=== PATIENT | male | born 1940 | race Hispanic/Latino ===

== ENCOUNTER 2022-06-29 15:22 | Inpatient (IN) | payer MEDICARE ==
[~2022-06-29] VITALS: Ht 170.2 cm; Wt 65.4 kg
[2022-06-29] VITALS (10 sets, daily range): BP systolic 92–137; BP diastolic 44–61
[2022-06-29] MEDS ORDERED: ACETAMINOPHEN 1000 MG/100 ML IV STA (15:52)
[2022-06-29] MEDS ORDERED: SODIUM CHLORIDE 0.9% 1000ML 1,000 ML IV SCH ×2 (16:00→17:15)
[2022-06-29 16:48] LABS: BASOPHILS % 0.3 % (0.0-1.0); EOSINOPHILS % 0.3 % (0.0-6.0); HEMATOCRIT 36.2 % (38.2-49.6); HEMOGLOBIN 10.9 g/dL (14.0-18.0); LYMPHOCYTES # (AUTO) 0.6 (1.0-3.2); LYMPHOCYTES % 9.1 % (18.0-39.1); MEAN CORPUSCULAR HEMOGLOBIN 30.4 pg (28-32); MEAN CORPUSCULAR HGB CONC 30.1 g/dL (31-35); MEAN CORPUSCULAR VOLUME 101.1 fL (81-99); MONOCYTES # (AUTO) 0.9 (0.2-0.8); MONOCYTES % 13.5 % (4.4-11.3); NEUTROPHILS # (AUTO) 5.1 (2.1-6.9); NEUTROPHILS % 76.3 % (38.7-80.0); PLATELET COUNT 246 x10e3/uL (140-360); RED BLOOD COUNT 3.58 x10e6/uL (4.3-5.7); RED CELL DISTRIBUTION WIDTH 13.7 % (11.7-14.4)
[2022-06-29 16:50] LABS: CLARITY,URINE SL CLOUDY (CLEAR); COLOR,URINE YELLOW (YELLOW); KETONES,URINE NEGATIVE (NEGATIVE); LEUKOCYTE ESTERASE ,URINE NEGATIVE (NEGATIVE); NITRITE,URINE NEGATIVE (NEGATIVE); PROTEIN,URINE DIPSTICK 2+ (NEGATIVE); URINE UROBILINOGEN 0.2 mg/dL (0.2 - 1)
[2022-06-29 16:58] LABS: AMORPHOUS SEDIMENT,URINE MODERATE (FEW); BACTERIA,URINE MODERATE /HPF
[2022-06-29 16:59] LABS: INR 1.24; PROTHROMBIN TIME 16.7 seconds (11.9-14.5)
[2022-06-29 17:08] LABS: ALBUMIN 3.5 g/dL (3.5-5.0); ALBUMIN/GLOBULIN RATIO 0.6 (0.8-2.0); ANION GAP 18.7 mmol/L (8-16); CALCIUM 8.9 mg/dL (8.4-10.2); CREATININE, SERUM 1.89 mg/dL (0.72-1.25); POTASSIUM 4.7 mmol/L (3.5-5.1)
[2022-06-29] MEDS ORDERED: SODIUM CHLORIDE FLUSH 10 ML SYR INJ PRN (17:15)
[2022-06-29] MEDS ORDERED: MIDAZOLAM HCL 2 MG/2 ML VIAL ONE (17:41)
[2022-06-29] MEDS ORDERED: FENTANYL CITRATE/PF 100MCG/2 ML INJ ONE (17:41)
[2022-06-29] MEDS ORDERED: SODIUM CHLORIDE 0.9% 1000ML 1,000 ML ONE (17:42)
[2022-06-29] MEDS ORDERED: HEPARIN SOD/SOD CHLORIDE 2,000 ML ONE (17:42)
[2022-06-29 17:45] LABS: CREATINE KINASE MB 1.8 ng/mL (0-5.0)
[2022-06-29] MEDS ORDERED: ACETAMINOPHEN 325 MG TAB PO PRN (19:15)
[2022-06-29] MEDS ORDERED: ONDANSETRON HCL INJ 2MG/ML 2ML 2 MG/ML VIAL IV PRN (19:15)
[2022-06-29] MEDS ORDERED: LIDOCAINE HCL 2% 100 MG/5 ML IV ONE (19:47)
[2022-06-29] MEDS ORDERED: AMIODARONE 900MG 900 MG in Premix Bag 1 BAG IV ONE (21:00)
[2022-06-29] MEDS ORDERED: VASOPRESSIN 60 UNIT in DEXTROSE 5% 50ML 57 ML IV PRN (21:00)
[2022-06-29] MEDS ORDERED: AMIODARONE HCL 150 MG/100 ML BAG IV ONE (21:00)
[2022-06-29] MEDS ORDERED: AMIODARONE 900MG 500 ML IV ONE (21:20)
[2022-06-30] VITALS (85 sets, daily range): BP systolic 83–152; BP diastolic 43–87
[2022-06-30] MEDS ORDERED: FUROSEMIDE INJ 10 MG/ML 4 ML VIAL IV ONE ×2 (01:00→01:15)
[2022-06-30 01:53] LABS: CREATINE KINASE MB 7.2 ng/mL (0-5.0)
[2022-06-30] MEDS ORDERED: ACETAMINOPHEN 1000 MG/100 ML IV PRN (02:30)
[2022-06-30 02:35] LABS: ABG HCO3 19 mmol/L (22-26); ABG PCO2 32 mmHg (35-45); ABG PH 7.37 (7.35-7.45); ABG PO2 77 mmHg (80-105); ABG TCO2 20
[2022-06-30 06:44] LABS: BASOPHILS % 0.4 % (0.0-1.0); HEMATOCRIT 31.6 % (38.2-49.6); HEMOGLOBIN 10.1 g/dL (14.0-18.0); LYMPHOCYTES # (AUTO) 0.6 (1.0-3.2); LYMPHOCYTES % 5.7 % (18.0-39.1); MEAN CORPUSCULAR HEMOGLOBIN 30.9 pg (28-32); MEAN CORPUSCULAR VOLUME 96.6 fL (81-99); MONOCYTES # (AUTO) 0.8 (0.2-0.8); MONOCYTES % 7.4 % (4.4-11.3); NEUTROPHILS # (AUTO) 8.9 (2.1-6.9); PLATELET COUNT 207 x10e3/uL (140-360); RED BLOOD COUNT 3.27 x10e6/uL (4.3-5.7); RED CELL DISTRIBUTION WIDTH 13.9 % (11.7-14.4)
[2022-06-30 07:13] LABS: ALBUMIN 2.9 g/dL (3.5-5.0); ALBUMIN/GLOBULIN RATIO 0.6 (0.8-2.0); ANION GAP 15.6 mmol/L (8-16); CALCIUM 8.3 mg/dL (8.4-10.2); CHOL/HDL RATIO 3.4 (3.9-4.7); CREATININE, SERUM 2.07 mg/dL (0.72-1.25); POTASSIUM 3.6 mmol/L (3.5-5.1)
[2022-06-30] MEDS ORDERED: OSELTAMIVIR PHOSPHATE 75 MG CAP PO SCH ×2 (09:00)
[2022-06-30] MEDS ORDERED: GUAIFENESIN/DEXTROMETHORPHAN LIQD 5 ML UDC PO PRN (10:45)
[2022-06-30] MEDS ORDERED: DOCUSATE SODIUM 100 MG CAP PO PRN (10:45)
[2022-06-30 12:35] LABS: CREATINE KINASE MB 10.6 ng/mL (0-5.0)
[2022-06-30] MEDS: IPRATROPIUM BROMIDE 0.02% 2.5 ML NEB NEB SCH ×2 (13:00→19:20)
[2022-06-30] MEDS ORDERED: BENICAR20 MG PO (15:20)
[2022-06-30] MEDS ORDERED: ATORVASTATIN CA20 MG PO (15:20)
[2022-06-30] MEDS ORDERED: OXYBUTYNIN CHLOR5 MG PO (15:20)
[2022-06-30] MEDS ORDERED: AVODART0.5 MG PO (15:20)
[2022-06-30] MEDS ORDERED: LEVOTHYROXINE50 MCG PO (15:20)
[2022-06-30] MEDS ORDERED: ENOXAPARIN SOD INJ 40 MG/0.4 ML SYR SC SCH (17:00)
[2022-06-30] MEDS: ENOXAPARIN 30 MG/0.3 ML SYR SC SCH (18:37)
[2022-06-30] MEDS: ALBUTEROL SULF 0.083% NEB SOLN 3 ML NEB NEB PRN (19:20)
[2022-06-30] MEDS ORDERED: AMIODARONE 900MG 900 MG in Premix Bag 1 BAG IV SCH (20:30)
[2022-06-30] MEDS ORDERED: AMIODARONE 900MG 500 ML IV ONE (21:46)
[2022-06-30 22:01] LABS: CREATININE,URINE RANDOM 30.78 mg/dL (63-166); TOTAL PROTEIN, URINE 11.9 mg/dL (1-14)
[2022-07-01] VITALS (56 sets, daily range): BP systolic 92–173; BP diastolic 47–103
[2022-07-01] MEDS: IPRATROPIUM BROMIDE 0.02% 2.5 ML NEB NEB SCH ×5 (01:25→23:00)
[2022-07-01 06:56] LABS: BASOPHILS % 0.3 % (0.0-1.0); HEMATOCRIT 31.7 % (38.2-49.6); HEMOGLOBIN 10.3 g/dL (14.0-18.0); LYMPHOCYTES # (AUTO) 0.8 (1.0-3.2); LYMPHOCYTES % 8.8 % (18.0-39.1); MEAN CORPUSCULAR HEMOGLOBIN 30.7 pg (28-32); MEAN CORPUSCULAR HGB CONC 32.5 g/dL (31-35); MEAN CORPUSCULAR VOLUME 94.6 fL (81-99); MONOCYTES # (AUTO) 0.7 (0.2-0.8); MONOCYTES % 7.9 % (4.4-11.3); NEUTROPHILS # (AUTO) 7.6 (2.1-6.9); NEUTROPHILS % 82.6 % (38.7-80.0); PLATELET COUNT 209 x10e3/uL (140-360); RED BLOOD COUNT 3.35 x10e6/uL (4.3-5.7); RED CELL DISTRIBUTION WIDTH 13.9 % (11.7-14.4)
[2022-07-01 07:10] LABS: MAGNESIUM 1.8 MG/DL (1.3-2.1); PHOSPHORUS 3.4 MG/DL (2.3-4.7)
[2022-07-01 07:12] LABS: ALBUMIN 2.8 g/dL (3.5-5.0); ALBUMIN/GLOBULIN RATIO 0.6 (0.8-2.0); ANION GAP 17.8 mmol/L (8-16); CALCIUM 8.4 mg/dL (8.4-10.2); CREATININE, SERUM 1.82 mg/dL (0.72-1.25); POTASSIUM 3.8 mmol/L (3.5-5.1)
[2022-07-01] MEDS ORDERED: OSELTAMIVIR PHOSPHATE 75 MG CAP PO SCH (09:00)
[2022-07-01] MEDS ORDERED: OSELTAMIVIR PHOSPHATE 30 MG CAPSULE PO SCH (09:00)
[2022-07-01] MEDS: MULTIVITAMINS/MINERALS TAB PO SCH (11:21)
[2022-07-01] MEDS ORDERED: ACETAMINOPHEN 1000 MG/100 ML IV SCH (12:50)
[2022-07-01] MEDS: SODIUM BICARBONATE 650 MG TAB PO SCH (17:47)
[2022-07-01] MEDS: ENOXAPARIN 30 MG/0.3 ML SYR SC SCH (17:47)
[2022-07-01] MEDS: ALBUTEROL SULF 0.083% NEB SOLN 3 ML NEB NEB PRN (18:07)
[2022-07-01] MEDS ORDERED: AMIODARONE HCL 200 MG TAB PO SCH (21:00)
[2022-07-01] MEDS: OSELTAMIVIR PHOSPHATE 30 MG CAPSULE PO SCH (21:33)
[2022-07-02] VITALS (40 sets, daily range): BP systolic 96–185; BP diastolic 32–112
[2022-07-02] MEDS: ACETAMINOPHEN 1000 MG/100 ML IV PRN ×2 (01:41→10:18)
[2022-07-02] MEDS ORDERED: AMIODARONE 900MG 900 MG in Premix Bag 1 BAG IV SCH (02:00)
[2022-07-02] MEDS ORDERED: AMIODARONE 900MG 500 ML IV ONE (02:23)
[2022-07-02 06:49] LABS: BASOPHILS % 0.1 % (0.0-1.0); HEMATOCRIT 34.3 % (38.2-49.6); HEMOGLOBIN 10.7 g/dL (14.0-18.0); LYMPHOCYTES # (AUTO) 0.8 (1.0-3.2); LYMPHOCYTES % 10.8 % (18.0-39.1); MEAN CORPUSCULAR HEMOGLOBIN 30.4 pg (28-32); MEAN CORPUSCULAR HGB CONC 31.2 g/dL (31-35); MEAN CORPUSCULAR VOLUME 97.4 fL (81-99); MONOCYTES # (AUTO) 0.6 (0.2-0.8); MONOCYTES % 7.7 % (4.4-11.3); NEUTROPHILS # (AUTO) 5.9 (2.1-6.9); PLATELET COUNT 207 x10e3/uL (140-360); RED BLOOD COUNT 3.52 x10e6/uL (4.3-5.7); RED CELL DISTRIBUTION WIDTH 13.9 % (11.7-14.4)
[2022-07-02 07:11] LABS: ALBUMIN 2.5 g/dL (3.5-5.0); ALBUMIN/GLOBULIN RATIO 0.5 (0.8-2.0); ANION GAP 14.6 mmol/L (8-16); CALCIUM 8.1 mg/dL (8.4-10.2); CREATININE, SERUM 1.58 mg/dL (0.72-1.25); POTASSIUM 3.6 mmol/L (3.5-5.1)
[2022-07-02] MEDS: IPRATROPIUM BROMIDE 0.02% 2.5 ML NEB NEB SCH ×3 (07:22→19:18)
[2022-07-02] MEDS: MULTIVITAMINS/MINERALS TAB PO SCH (09:27)
[2022-07-02] MEDS: OSELTAMIVIR PHOSPHATE 30 MG CAPSULE PO SCH ×2 (09:27→19:55)
[2022-07-02] MEDS: SODIUM BICARBONATE 650 MG TAB PO SCH ×2 (09:27→16:58)
[2022-07-02] MEDS ORDERED: KCL 20 MEQ PACKET/ ORAL SOLN NG ONE (10:45)
[2022-07-02] MEDS: ENOXAPARIN 30 MG/0.3 ML SYR SC SCH (16:58)
[2022-07-02] MEDS: MELATONIN 3 MG TAB PO PRN (23:14)
[2022-07-03] VITALS (43 sets, daily range): BP systolic 112–156; BP diastolic 50–68
[2022-07-03] MEDS: IPRATROPIUM BROMIDE 0.02% 2.5 ML NEB NEB SCH ×4 (01:50→19:05)
[2022-07-03 06:42] LABS: BASOPHILS % 0.4 % (0.0-1.0); EOSINOPHILS % 0.6 % (0.0-6.0); HEMATOCRIT 30.7 % (38.2-49.6); HEMOGLOBIN 9.7 g/dL (14.0-18.0); LYMPHOCYTES # (AUTO) 0.9 (1.0-3.2); LYMPHOCYTES % 16.1 % (18.0-39.1); MEAN CORPUSCULAR HEMOGLOBIN 30.8 pg (28-32); MEAN CORPUSCULAR HGB CONC 31.6 g/dL (31-35); MEAN CORPUSCULAR VOLUME 97.5 fL (81-99); MONOCYTES # (AUTO) 0.6 (0.2-0.8); MONOCYTES % 10.4 % (4.4-11.3); NEUTROPHILS # (AUTO) 3.8 (2.1-6.9); NEUTROPHILS % 71.4 % (38.7-80.0); PLATELET COUNT 190 x10e3/uL (140-360); RED BLOOD COUNT 3.15 x10e6/uL (4.3-5.7); RED CELL DISTRIBUTION WIDTH 13.9 % (11.7-14.4)
[2022-07-03 07:04] LABS: ALBUMIN 2.2 g/dL (3.5-5.0); ALBUMIN/GLOBULIN RATIO 0.5 (0.8-2.0); ANION GAP 13.7 mmol/L (8-16); CALCIUM 7.9 mg/dL (8.4-10.2); CREATININE, SERUM 1.53 mg/dL (0.72-1.25); POTASSIUM 3.7 mmol/L (3.5-5.1)
[2022-07-03 08:16] LABS: BAND NEUTROPHILS % (MANUAL) 8 %; EOSINOPHILS % (MANUAL) 1 % (0-7); LYMPHOCYTES % (MANUAL) 7 % (19-48); METAMYELOCYTES % (MANUAL) 2 % (0-0); MONOCYTES % (MANUAL) 11 % (3.4-9.0); MYELOCYTES % (MANUAL) 1 % (0-0); NEUTROPHILS % (MANUAL) 69 % (40-74)
[2022-07-03] MEDS: AMIODARONE HCL 200 MG TAB PO SCH ×2 (08:22→17:13)
[2022-07-03] MEDS: OSELTAMIVIR PHOSPHATE 30 MG CAPSULE PO SCH ×2 (08:22→20:13)
[2022-07-03] MEDS: SODIUM BICARBONATE 650 MG TAB PO SCH ×2 (08:22→17:13)
[2022-07-03] MEDS: MULTIVITAMINS/MINERALS TAB PO SCH (08:22)
[2022-07-03 08:26] LABS: PLATELET ESTIMATE ADEQUATE; PLATELET MORPHOLOGY COMMENT NORMAL
[2022-07-03] MEDS: ENOXAPARIN 30 MG/0.3 ML SYR SC SCH (17:13)
[2022-07-04] VITALS (27 sets, daily range): BP systolic 130–153; BP diastolic 49–71
[2022-07-04] MEDS: MELATONIN 3 MG TAB PO PRN (00:41)
[2022-07-04] MEDS: IPRATROPIUM BROMIDE 0.02% 2.5 ML NEB NEB SCH ×4 (02:25→20:00)
[2022-07-04 05:39] LABS: ANION GAP 14.5 mmol/L (8-16); CALCIUM 7.6 mg/dL (8.4-10.2); CREATININE, SERUM 1.34 mg/dL (0.72-1.25); POTASSIUM 3.5 mmol/L (3.5-5.1)
[2022-07-04 08:07] LABS: BASOPHILS % 0.5 % (0.0-1.0); EOSINOPHILS # (AUTO) 0.1 (0.0-0.4); EOSINOPHILS % 1.4 % (0.0-6.0); HEMATOCRIT 31.6 % (38.2-49.6); HEMOGLOBIN 10.3 g/dL (14.0-18.0); LYMPHOCYTES # (AUTO) 1.2 (1.0-3.2); LYMPHOCYTES % 18.8 % (18.0-39.1); MEAN CORPUSCULAR HEMOGLOBIN 30.7 pg (28-32); MEAN CORPUSCULAR HGB CONC 32.6 g/dL (31-35); MONOCYTES # (AUTO) 0.7 (0.2-0.8); MONOCYTES % 10.2 % (4.4-11.3); NEUTROPHILS # (AUTO) 4.3 (2.1-6.9); NEUTROPHILS % 67.5 % (38.7-80.0); PLATELET COUNT 215 x10e3/uL (140-360); RED BLOOD COUNT 3.36 x10e6/uL (4.3-5.7); RED CELL DISTRIBUTION WIDTH 14.2 % (11.7-14.4)
[2022-07-04] MEDS: MULTIVITAMINS/MINERALS TAB PO SCH (09:42)
[2022-07-04] MEDS: AMIODARONE HCL 200 MG TAB PO SCH ×2 (09:42→17:36)
[2022-07-04] MEDS: SODIUM BICARBONATE 650 MG TAB PO SCH ×2 (09:42→17:36)
[2022-07-04] MEDS: OSELTAMIVIR PHOSPHATE 30 MG CAPSULE PO SCH ×2 (09:42→20:50)
[2022-07-04] MEDS: ONDANSETRON HCL INJ 2MG/ML 2ML 2 MG/ML VIAL IV PRN (11:21)
[2022-07-04] MEDS: ENOXAPARIN 30 MG/0.3 ML SYR SC SCH (17:36)
[2022-07-05] VITALS (19 sets, daily range): BP systolic 86–156; BP diastolic 40–87
[2022-07-05] MEDS: IPRATROPIUM BROMIDE 0.02% 2.5 ML NEB NEB SCH (00:55)
[2022-07-05] MEDS ORDERED: AMIODARONE 900MG 900 MG in Premix Bag 1 BAG IV SCH (03:30)
[2022-07-05] MEDS ORDERED: AMIODARONE 900MG 500 ML IV ONE (03:54)
[2022-07-05] MEDS: IPRATROPIUM BROMIDE 0.02% 2.5 ML NEB NEB PRN ×2 (07:00→19:30)
[2022-07-05 08:33] LABS: BASOPHILS % 0.4 % (0.0-1.0); EOSINOPHILS # (AUTO) 0.1 (0.0-0.4); EOSINOPHILS % 0.7 % (0.0-6.0); HEMATOCRIT 32.9 % (38.2-49.6); HEMOGLOBIN 10.3 g/dL (14.0-18.0); LYMPHOCYTES # (AUTO) 1.8 (1.0-3.2); MEAN CORPUSCULAR HEMOGLOBIN 30.7 pg (28-32); MEAN CORPUSCULAR HGB CONC 31.3 g/dL (31-35); MEAN CORPUSCULAR VOLUME 97.9 fL (81-99); MONOCYTES # (AUTO) 0.8 (0.2-0.8); MONOCYTES % 10.2 % (4.4-11.3); NEUTROPHILS # (AUTO) 5.1 (2.1-6.9); NEUTROPHILS % 62.9 % (38.7-80.0); PLATELET COUNT 222 x10e3/uL (140-360); RED BLOOD COUNT 3.36 x10e6/uL (4.3-5.7); RED CELL DISTRIBUTION WIDTH 13.9 % (11.7-14.4)
[2022-07-05 09:00] LABS: ANION GAP 16.5 mmol/L (8-16); CALCIUM 7.7 mg/dL (8.4-10.2); CREATININE, SERUM 1.41 mg/dL (0.72-1.25); POTASSIUM 3.5 mmol/L (3.5-5.1)
[2022-07-05] MEDS: SODIUM BICARBONATE 650 MG TAB PO SCH ×2 (09:33→17:56)
[2022-07-05] MEDS: MULTIVITAMINS/MINERALS TAB PO SCH (09:33)
[2022-07-05] MEDS: AMIODARONE HCL 200 MG TAB PO SCH ×2 (09:35→17:56)
[2022-07-05] MEDS: ONDANSETRON HCL INJ 2MG/ML 2ML 2 MG/ML VIAL IV PRN (15:27)
[2022-07-05] MEDS: MELATONIN 3 MG TAB PO PRN (20:11)
[2022-07-05] MEDS ORDERED: ACETAMINOPHEN 325 MG TAB ONE (20:22)
[2022-07-06] VITALS (14 sets, daily range): BP systolic 118–157; BP diastolic 47–69
[2022-07-06 06:58] LABS: BASOPHILS % 0.5 % (0.0-1.0); EOSINOPHILS # (AUTO) 0.2 (0.0-0.4); EOSINOPHILS % 2.4 % (0.0-6.0); HEMATOCRIT 32.1 % (38.2-49.6); HEMOGLOBIN 10.3 g/dL (14.0-18.0); LYMPHOCYTES # (AUTO) 1.7 (1.0-3.2); LYMPHOCYTES % 21.2 % (18.0-39.1); MEAN CORPUSCULAR HEMOGLOBIN 30.3 pg (28-32); MEAN CORPUSCULAR HGB CONC 32.1 g/dL (31-35); MEAN CORPUSCULAR VOLUME 94.4 fL (81-99); MONOCYTES # (AUTO) 0.8 (0.2-0.8); MONOCYTES % 10.7 % (4.4-11.3); NEUTROPHILS # (AUTO) 4.7 (2.1-6.9); NEUTROPHILS % 59.9 % (38.7-80.0); PLATELET COUNT 279 x10e3/uL (140-360); RED CELL DISTRIBUTION WIDTH 14.3 % (11.7-14.4)
[2022-07-06 07:18] LABS: ALBUMIN 2.1 g/dL (3.5-5.0); ALBUMIN/GLOBULIN RATIO 0.4 (0.8-2.0); ANION GAP 17.3 mmol/L (8-16); CALCIUM 7.6 mg/dL (8.4-10.2); CREATININE, SERUM 1.38 mg/dL (0.72-1.25); POTASSIUM 3.3 mmol/L (3.5-5.1)
[2022-07-06] MEDS: AMIODARONE HCL 200 MG TAB PO SCH ×2 (07:51→17:00)
[2022-07-06] MEDS: SODIUM BICARBONATE 650 MG TAB PO SCH ×2 (07:51→17:00)
[2022-07-06] MEDS: MULTIVITAMINS/MINERALS TAB PO SCH (07:51)
[2022-07-06 08:41] LABS: EOSINOPHILS % (MANUAL) 4 % (0-7); LYMPHOCYTES % (MANUAL) 10 % (19-48); MONOCYTES % (MANUAL) 18 % (3.4-9.0); NEUTROPHILS % (MANUAL) 67 % (40-74); PLATELET ESTIMATE ADEQUATE; PLATELET MORPHOLOGY COMMENT NORMAL; RBC MORPHOLOGY COMMENT NORMAL
[2022-07-06] MEDS ORDERED: PROPOFOL IV EMULSION 10 MG/ML 20 ML VIAL ONE (12:04)
[2022-07-06] MEDS ORDERED: FENTANYL CITRATE/PF 100MCG/2 ML INJ ONE (12:25)
[2022-07-06] MEDS ORDERED: POTASSIUM CHLORIDE 20MEQ/100ML 200 ML IV ONE (17:00)
[2022-07-06] MEDS ORDERED: AMIODARONE 900MG 500 ML IV SCH (19:30)
[2022-07-07] VITALS (24 sets, daily range): BP systolic 134–177; BP diastolic 55–119
[2022-07-07] MEDS: ONDANSETRON HCL INJ 2MG/ML 2ML 2 MG/ML VIAL IV PRN (06:23)
[2022-07-07 06:57] LABS: BASOPHILS % 0.2 % (0.0-1.0); EOSINOPHILS # (AUTO) 0.2 (0.0-0.4); EOSINOPHILS % 2.6 % (0.0-6.0); HEMATOCRIT 34.3 % (38.2-49.6); HEMOGLOBIN 10.5 g/dL (14.0-18.0); LYMPHOCYTES # (AUTO) 1.3 (1.0-3.2); LYMPHOCYTES % 15.2 % (18.0-39.1); MEAN CORPUSCULAR HEMOGLOBIN 30.6 pg (28-32); MEAN CORPUSCULAR HGB CONC 30.6 g/dL (31-35); MONOCYTES % 11.3 % (4.4-11.3); NEUTROPHILS # (AUTO) 5.9 (2.1-6.9); NEUTROPHILS % 67.2 % (38.7-80.0); PLATELET COUNT 381 x10e3/uL (140-360); RED BLOOD COUNT 3.43 x10e6/uL (4.3-5.7); RED CELL DISTRIBUTION WIDTH 14.3 % (11.7-14.4)
[2022-07-07 07:28] LABS: ALBUMIN 2.2 g/dL (3.5-5.0); ALBUMIN/GLOBULIN RATIO 0.4 (0.8-2.0); ANION GAP 18.1 mmol/L (8-16); CALCIUM 8.4 mg/dL (8.4-10.2); CREATININE, SERUM 1.37 mg/dL (0.72-1.25); POTASSIUM 4.1 mmol/L (3.5-5.1)
[2022-07-07] MEDS: MULTIVITAMINS/MINERALS TAB PO SCH (09:00)
[2022-07-07] MEDS: SODIUM BICARBONATE 650 MG TAB PO SCH ×2 (09:00→17:00)
[2022-07-07] MEDS: AMIODARONE HCL 200 MG TAB PO SCH ×2 (09:00→17:00)
[2022-07-07 11:16] LABS: BAND NEUTROPHILS % (MANUAL) 1 %; EOSINOPHILS % (MANUAL) 2 % (0-7); LYMPHOCYTES % (MANUAL) 12 % (19-48); METAMYELOCYTES % (MANUAL) 2 % (0-0); MONOCYTES % (MANUAL) 8 % (3.4-9.0); NEUTROPHILS % (MANUAL) 73 % (40-74); PLATELET ESTIMATE ADEQUATE; PLATELET MORPHOLOGY COMMENT NORMAL
[2022-07-07] MEDS ORDERED: AMLODIPINE BESYLATE 5 MG TAB PO ONE (14:15)
[2022-07-07] MEDS: HYDRALAZINE HCL 20 MG/ML VIAL IV PRN (20:17)
[2022-07-08] VITALS (24 sets, daily range): BP systolic 107–176; BP diastolic 43–98
[2022-07-08] MEDS: MELATONIN 3 MG TAB PO PRN ×2 (02:41→23:49)
[2022-07-08 06:40] LABS: BASOPHILS % 0.2 % (0.0-1.0); EOSINOPHILS # (AUTO) 0.2 (0.0-0.4); EOSINOPHILS % 1.6 % (0.0-6.0); HEMATOCRIT 32.9 % (38.2-49.6); HEMOGLOBIN 10.2 g/dL (14.0-18.0); LYMPHOCYTES # (AUTO) 1.1 (1.0-3.2); LYMPHOCYTES % 11.5 % (18.0-39.1); MEAN CORPUSCULAR HEMOGLOBIN 30.7 pg (28-32); MEAN CORPUSCULAR VOLUME 99.1 fL (81-99); MONOCYTES % 10.4 % (4.4-11.3); NEUTROPHILS # (AUTO) 7.4 (2.1-6.9); NEUTROPHILS % 74.6 % (38.7-80.0); PLATELET COUNT 447 x10e3/uL (140-360); RED BLOOD COUNT 3.32 x10e6/uL (4.3-5.7); RED CELL DISTRIBUTION WIDTH 14.4 % (11.7-14.4)
[2022-07-08] MEDS ORDERED: AMIODARONE 900MG 500 ML IV ONE (07:03)
[2022-07-08 07:38] LABS: ALBUMIN 2.1 g/dL (3.5-5.0); ALBUMIN/GLOBULIN RATIO 0.4 (0.8-2.0); CALCIUM 8.6 mg/dL (8.4-10.2); CREATININE, SERUM 1.77 mg/dL (0.72-1.25)
[2022-07-08] MEDS: AMIODARONE HCL 200 MG TAB PO SCH ×2 (09:09→19:23)
[2022-07-08] MEDS: SODIUM BICARBONATE 650 MG TAB PO SCH ×2 (09:09→19:23)
[2022-07-08] MEDS: AMLODIPINE BESYLATE 5 MG TAB PO SCH (09:09)
[2022-07-08] MEDS: MULTIVITAMINS/MINERALS TAB PO SCH (09:09)
[2022-07-08] MEDS: HEPARIN SOD (PORCINE) 5,000 UNIT/ML VIAL SC SCH (20:42)
[2022-07-08] MEDS: HYDRALAZINE HCL 20 MG/ML VIAL IV PRN (22:11)
[2022-07-09] VITALS (18 sets, daily range): BP systolic 109–147; BP diastolic 54–76
[2022-07-09] MEDS ORDERED: MAGNESIUM HYDROXIDE 30 ML UDC PEG ONE (04:00)
[2022-07-09] MEDS ORDERED: MAGNESIUM HYDROXIDE 30 ML UDC PEG PRN (04:00)
[2022-07-09 05:34] LABS: ANION GAP 17.3 mmol/L (8-16); CALCIUM 8.3 mg/dL (8.4-10.2); CREATININE, SERUM 1.49 mg/dL (0.72-1.25); POTASSIUM 3.3 mmol/L (3.5-5.1)
[2022-07-09] MEDS ORDERED: ASPIRIN 325 MG TAB PO SCH (09:00)
[2022-07-09] MEDS: MULTIVITAMINS/MINERALS TAB PO SCH (09:13)
[2022-07-09] MEDS: SODIUM BICARBONATE 650 MG TAB PO SCH ×2 (09:13→16:27)
[2022-07-09] MEDS: FAMOTIDINE 20 MG TAB GT SCH (09:13)
[2022-07-09] MEDS: AMIODARONE HCL 200 MG TAB PO SCH ×2 (09:13→16:27)
[2022-07-09] MEDS: AMLODIPINE BESYLATE 5 MG TAB PO SCH (09:14)
[2022-07-09] MEDS: HEPARIN SOD (PORCINE) 5,000 UNIT/ML VIAL SC SCH ×2 (09:17→20:23)
[2022-07-09] MEDS: ASPIRIN 81 MG CHEW TAB PO SCH (09:57)
[2022-07-09] MEDS: ONDANSETRON HCL INJ 2MG/ML 2ML 2 MG/ML VIAL IV PRN (14:32)
[2022-07-09] MEDS ORDERED: MAGNESIUM HYDROXIDE 30 ML UDC GT ONE (16:15)
[2022-07-09] MEDS ORDERED: BISACODYL 10 MG SUPP PR ONE (21:45)
[2022-07-10] VITALS (14 sets, daily range): BP systolic 101–145; BP diastolic 51–61
[2022-07-10] MEDS ORDERED: MAGNESIUM HYDROXIDE 30 ML UDC PEG ONE (01:45)
[2022-07-10] MEDS: SODIUM BICARBONATE 650 MG TAB PO SCH (08:15)
[2022-07-10] MEDS: FAMOTIDINE 20 MG TAB GT SCH (08:15)
[2022-07-10] MEDS: AMLODIPINE BESYLATE 5 MG TAB PO SCH (08:15)
[2022-07-10] MEDS: MULTIVITAMINS/MINERALS TAB PO SCH (08:15)
[2022-07-10] MEDS: ASPIRIN 81 MG CHEW TAB PO SCH (08:16)
[2022-07-10] MEDS: AMIODARONE HCL 200 MG TAB PO SCH ×2 (08:16→17:33)
[2022-07-10] MEDS: HEPARIN SOD (PORCINE) 5,000 UNIT/ML VIAL SC SCH ×2 (08:17→20:20)
[2022-07-10 08:36] LABS: ANION GAP 13.7 mmol/L (8-16); CALCIUM 8.1 mg/dL (8.4-10.2); CREATININE, SERUM 1.59 mg/dL (0.72-1.25); POTASSIUM 3.7 mmol/L (3.5-5.1)
[2022-07-11] VITALS (28 sets, daily range): BP systolic 126–169; BP diastolic 52–82
[2022-07-11 06:31] LABS: ANION GAP 12.9 mmol/L (8-16); CALCIUM 8.1 mg/dL (8.4-10.2); CREATININE, SERUM 1.71 mg/dL (0.72-1.25); POTASSIUM 3.9 mmol/L (3.5-5.1)
[2022-07-11] MEDS: HEPARIN SOD (PORCINE) 5,000 UNIT/ML VIAL SC SCH ×2 (08:59→21:05)
[2022-07-11] MEDS: ASPIRIN 81 MG CHEW TAB PO SCH (09:00)
[2022-07-11] MEDS: MULTIVITAMINS/MINERALS TAB PO SCH (09:00)
[2022-07-11] MEDS: AMLODIPINE BESYLATE 5 MG TAB PO SCH (09:00)
[2022-07-11] MEDS: FAMOTIDINE 20 MG TAB GT SCH (09:00)
[2022-07-11] MEDS: AMIODARONE HCL 200 MG TAB PO SCH ×2 (09:00→17:18)
[2022-07-11] MEDS ORDERED: GENTAMICIN SULFATE 40 MG/ML 2 ML VIAL ONE (12:23)
[2022-07-11] MEDS ORDERED: MIDAZOLAM HCL 2 MG/2 ML VIAL ONE ×2 (12:23→13:26)
[2022-07-11] MEDS ORDERED: SODIUM CHLORIDE 0.9% 1000ML 2,000 ML ONE (12:24)
[2022-07-11] MEDS ORDERED: FENTANYL CITRATE/PF 100MCG/2 ML INJ ONE (12:24)
[2022-07-11] MEDS ORDERED: Vancomycin IV 1 GM VIAL ONE (12:24)
[2022-07-11] MEDS ORDERED: LIDOCAINE HCL/EPINEPHRINE/PF 10 ML VIAL ONE (12:24)
[2022-07-11] MEDS ORDERED: SODIUM CHLORIDE 0.9% 250ML 250 ML ONE ×2 (12:25→13:08)
[2022-07-11] MEDS ORDERED: DEXTROSE 5% 1,000 ML IV ONE (16:30)
[2022-07-11] MEDS ORDERED: DEXTROSE 5% 1,000 ML IV SCH (16:45)
[2022-07-11] MEDS: DEXTROSE 5% 1,000 ML IV SCH (17:18)
[2022-07-11] MEDS: METOPROLOL TARTRATE 25 MG TAB PO SCH (17:18)
[2022-07-12] VITALS (13 sets, daily range): BP systolic 118–162; BP diastolic 63–81
[2022-07-12] MEDS: DEXTROSE 5% 1,000 ML IV SCH (06:39)
[2022-07-12] MEDS ORDERED: ACETAMINOPHEN 325 MG TAB ONE (06:48)
[2022-07-12] MEDS: AMLODIPINE BESYLATE 5 MG TAB PO SCH (08:57)
[2022-07-12] MEDS: MULTIVITAMINS/MINERALS TAB PO SCH (08:58)
[2022-07-12] MEDS: METOPROLOL TARTRATE 25 MG TAB PO SCH (08:58)
[2022-07-12] MEDS: AMIODARONE HCL 200 MG TAB PO SCH (08:58)
[2022-07-12] MEDS: ASPIRIN 81 MG CHEW TAB PO SCH (08:58)
[2022-07-12] MEDS: FAMOTIDINE 20 MG TAB GT SCH (08:59)
[2022-07-12] MEDS: HEPARIN SOD (PORCINE) 5,000 UNIT/ML VIAL SC SCH (08:59)
== END 2022-07-12 17:46 | DRG 853 ==
LOC: ER 15:30 → ICU 20:33
PROVIDERS: ADMIT Internal Medicine; ATTEND Internal Medicine
PROC: 0T9B70Z Drainage of Bladder with Drainage Device, Via Natural or Artificial Opening (ICD-10-PCS; principal; 2022-06-29)
PROC: 5A1223Z Performance of Cardiac Pacing, Continuous (ICD-10-PCS; 2022-06-29)
PROC: 02HK3JZ Insertion of Pacemaker Lead into Right Ventricle, Percutaneous Approach (ICD-10-PCS; 2022-06-29)
PROC: 02HV33Z Insertion of Infusion Device into Superior Vena Cava, Percutaneous Approach (ICD-10-PCS; 2022-06-29)
PROC: B548ZZA Ultrasonography of Superior Vena Cava, Guidance (ICD-10-PCS; 2022-06-29)
PROC: 3E043XZ Introduction of Vasopressor into Central Vein, Percutaneous Approach (ICD-10-PCS; 2022-06-29)
PROC: 3E04329 Introduction of Other Anti-infective into Central Vein, Percutaneous Approach (ICD-10-PCS; 2022-06-30)
PROC: 0DH63UZ Insertion of Feeding Device into Stomach, Percutaneous Approach (ICD-10-PCS; 2022-07-06)
PROC: 0JH606Z Insertion of Pacemaker, Dual Chamber into Chest Subcutaneous Tissue and Fascia, Open Approach (ICD-10-PCS; 2022-07-11)
PROC: 02H63JZ Insertion of Pacemaker Lead into Right Atrium, Percutaneous Approach (ICD-10-PCS; 2022-07-11)
PROC: 02HK3JZ Insertion of Pacemaker Lead into Right Ventricle, Percutaneous Approach (ICD-10-PCS; 2022-07-11)
DX: A41.9 Sepsis, unspecified organism (principal); G93.41 Metabolic encephalopathy; I50.23 Acute on chronic systolic (congestive) heart failure; J96.01 Acute respiratory failure with hypoxia; J10.08 Influenza due to other identified influenza virus with other specified pneumonia; J12.9 Viral pneumonia, unspecified; N17.0 Acute kidney failure with tubular necrosis; R65.21 Severe sepsis with septic shock; I21.A1 Myocardial infarction type 2; J69.0 Pneumonitis due to inhalation of food and vomit; E87.20 Acidosis, unspecified; I13.0 Hypertensive heart and chronic kidney disease with heart failure and stage 1 through stage 4 chronic kidney disease, or unspecified chronic kidney disease; M62.82 Rhabdomyolysis; E03.9 Hypothyroidism, unspecified; I49.5 Sick sinus syndrome; I48.91 Unspecified atrial fibrillation; N18.30 Chronic kidney disease, stage 3 unspecified; E11.22 Type 2 diabetes mellitus with diabetic chronic kidney disease; Z20.822 Contact with and (suspected) exposure to COVID-19; Z88.0 Allergy status to penicillin; D64.9 Anemia, unspecified; I48.0 Paroxysmal atrial fibrillation; E87.5 Hyperkalemia; K20.90 Esophagitis, unspecified without bleeding; K29.70 Gastritis, unspecified, without bleeding; K44.9 Diaphragmatic hernia without obstruction or gangrene
CPT/HCPCS: 33208; 33210; 36415; 43246; 71045; 74018; 74230; 76770; 80048; 80053; 80061; 81001; 82550; 82553; 82570; 82805; 82948; 83605; 83735; 83880; 84100; 84156; 84300; 84484; 85025; 85610; 85730; 87040; 87086; 87400; 87449; 87899; 93005; 93306; 94640; 94660; 94799; 99152; 99153; 99251; 99285; C1785; C1898; J0360; J0456; J0696; J1580; J1644; J1650; J1940; J2001; J2250; J2405; J2543; J3010; J3370; J3480; J7030; J7050; J7070